=== PATIENT | male | born 1935 | race Caucasian/White ===

== ENCOUNTER 2016-05-30 05:00 | Day surgery (SDC) | payer BC ==
[2016-05-28 13:55] LABS: HEMATOCRIT 38.5 % (40.0-51.0); HEMOGLOBIN 12.8 g/dL (13.6-17.8)
--- NOTE | ~2016-05-30 | OP ---
Record Of Operation [facility] [address] [place]. [address] NAME: KITTY GIBBS : 35 STATUS : [facility]#: [id number] AGE: 80 ADM/REG DATE : 05/30/16 MR#: [id number] REPORT SERV DATE: 05/30/16 DICTATED BY: CHARLY YADAV DATE: 05/30/16 REPORT STATUS : Draft TRANSCRIBED BY: MODL DATE: 05/30/16 DATE OF PROCEDURE: 05/30/2016 PREOPERATIVE DIAGNOSIS: L5 acute compression fracture with intractable back pain. POSTOPERATIVE DIAGNOSIS: L5 acute compression fracture with intractable back pain. PROCEDURE: Navigation-assisted L5 kyphoplasty. JOURNEYMAN LINEMAN: Edwin Ramos. ANESTHESIA: General. BLOOD LOSS: 5 mL. INDICATIONS FOR SURGERY: An 80-year-old gentleman with a recent fall with acute severe back pain. He has tried medications and therapy. Plain x-rays revealed a superior endplate compression fracture which has failed to respond to the medication and bracing. He was given the option of a kyphoplasty just to try to help with pain control and to allow him to be more functional. I did explain to the family this morning that the risks would include but not limited to infection, cement extravasation that could result in cardiac or pulmonary collapse and . Cement can migrate and cause neurologic injury or including paralysis. Hematoma can occur. Perioperative complications such as UTI, PE, pneumonia, IN, CVA were explained as well. Consent form has been signed. PROCEDURE IN DETAIL: The patient was brought to the operative suite. General anesthetic including endotracheal intubation was administered. He was placed prone on a Jose Daniel spine frame. Bony prominences were carefully padded. Thoracolumbar spine was scrubbed with Hibiclens solution. DuraPrep was painted. Sterile drapes were applied. Because of the deformity in the spine and the need to identify correct level of surgery intraoperatively, I felt intraoperative navigation was mandatory. Intraoperative CT scan with the O-arm was obtained. CT information was used to register the navigational system. With navigational assistance, I placed a navigation-assisted needle with the obturator and cannula across the pedicle into the posterior body of L5 left and right sides. The obturator was removed. The cannula was left in place. A guidewire was placed through the cannula, and the cannula was then removed. The kyphoplasty cannula was then inserted over the guidewire and placed into the posterior aspect of the vertebral body through the pedicle. The guidewire was removed, and a biopsy taken and then sent to the lab for routine histology. I then inserted the drill creating a void in the posterior aspect of the vertebral body, left and right sides. A kyphoplasty balloon was inserted, inflated, and deflated creating a large bone void. Record Of Operation [facility] [address] [place]. [address] NAME: KITTY GIBBS : 35 STATUS : [facility] PAT#: [id number] AGE: 80 ADM/REG DATE : 05/30/16 MR#: [id number] REPORT SERV DATE: 05/30/16 DICTATED BY: CHARLY YADAV DATE: 05/30/16 REPORT STATUS : Draft TRANSCRIBED BY: ANDRE DATE: 05/30/16 Under continuous C-arm imaging, poly methyl methacrylate was injected. A total of 4 mL was injected. This nicely filled the vertebral body in the area of the fracture. There was no extravasation found. After the cement had hardened, the cannula was removed. The stab wound was closed with a sterile dressing. The patient was returned to the supine position, awakened, extubated, and taken to recovery room in a satisfactory condition having tolerated the procedure well. Sponge, needle, and instrument counts were correct. No intraoperative complications were noted. ANJALI/ANDRE Charly Yadav D.O. / [id number]
[~2016-05-30 05:00] MED LIST: *DENIES; ANADS PO; ASAB PO; ASABAYER PO; BENICAR HCT1 TA2 PO; BENICAR40 PO; COREG3 PO; GLUCPH PO; LIPITOR10 PO; LIPITOR20 PO; NAP500 PO; OMEPRAZOLE DR PO; ULTRAM50 PO
[2016-05-30 05:58] LABS: CALCIUM, SERUM 8.7 MG/DL (8.5-10.4); CHLORIDE, SERUM 107 MMOL/L (96-112); CO2 (CARBON DIOXIDE) 28 MMOL/L (24-34); CREATININE 0.89 MG/DL (0.70-1.30); GFR AFRICAN AMERICAN 94 ML/MIN (>=60); GFR NON AFRICAN AMERICAN 81 ML/MIN (>=60); POTASSIUM, SERUM 4.3 MMOL/L (3.5-5.3); SODIUM, SERUM 142 MMOL/L (135-148)
[2016-05-30 05:59] LABS: BUN (BLOOD UREA NITROGEN) 25 MG/DL (6-23); GLUCOSE, SERUM 84 MG/DL (60-99)
== END 2016-05-30 09:34 | disposition home or self-care (01) ==
LOC: SDC 05:00
PROVIDERS: Orthopaedic Surgery Orthopaedic Surgery of the Spine
PROC: 0QU03JZ Supplement Lumbar Vertebra with Synthetic Substitute, Percutaneous Approach (ICD-10-PCS; 2016-05-30)
PROC: 0QB03ZX Excision of Lumbar Vertebra, Percutaneous Approach, Diagnostic (ICD-10-PCS; 2016-05-30)
PROC: 0QS03ZZ Reposition Lumbar Vertebra, Percutaneous Approach (ICD-10-PCS; principal; 2016-05-30 05:45)
DX: S32.059A Unspecified fracture of fifth lumbar vertebra, initial encounter for closed fracture (principal); M54.9 Dorsalgia, unspecified; I10 Essential (primary) hypertension; I42.0 Dilated cardiomyopathy; E78.5 Hyperlipidemia, unspecified; E11.9 Type 2 diabetes mellitus without complications; E78.00 Pure hypercholesterolemia, unspecified; F41.9 Anxiety disorder, unspecified; F32.9 Major depressive disorder, single episode, unspecified; G40.909 Epilepsy, unspecified, not intractable, without status epilepticus; G47.33 Obstructive sleep apnea (adult) (pediatric); M19.90 Unspecified osteoarthritis, unspecified site; M81.0 Age-related osteoporosis without current pathological fracture; N42.9 Disorder of prostate, unspecified; Z86.73 Personal history of transient ischemic attack (TIA), and cerebral infarction without residual deficits; Z87.01 Personal history of pneumonia (recurrent); Z88.8 Allergy status to other drugs, medicaments and biological substances; Z98.890 Other specified postprocedural states
CPT/HCPCS: 80048; 82962; 85014; 85018; 88307; 88311; 93005; C1726; J0690; J2250; J2710; J3010; Q9967

== ENCOUNTER 2016-07-10 10:18 | Inpatient (IN) | payer BC ==
--- NOTE | ~2016-07-10 | CN ---
Consultation Report [facility] [address] [place]. [address] NAME: EDSON GIBBS : 35 STATUS : ADM IN PAT#: [id number] AGE: 80 ADM/REG DATE : 07/10/16 MR#: [id number] REPORT SERV DATE: 07/11/16 DICTATED BY: Jo Ann CARDOZO DATE: 07/11/16 REPORT STATUS : Draft TRANSCRIBED BY: MODL DATE: 07/11/16 DATE OF CONSULTATION: 07/10/2016 CHIEF COMPLAINT: Left renal mass. HISTORY OF PRESENT ILLNESS: Mr. Gibbs is an 80-year-old white male, who underwent some recent back surgery. He is admitted with a new L4 compression fracture and pain. It was noted on review of some recent outside imaging that there was some sort of cystic mass associated with his left kidney. 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 There is no strong evidence for metastatic disease. He denies any history, gross hematuria, or voiding dysfunction. His family states that he has become progressively weaker over the last several months. PAST MEDICAL HISTORY: 1. Previous head injury. 2. Seizure disorder. 3. Previous CVA. 4. Hypertension. 5. Hypercholesterolemia. 6. Sleep apnea. 7. Arthritis. 8. Fractured hips. 9. Indeterminate prostate issues. 10.Anxiety and depression. 11.Psoriasis. PAST SURGICAL HISTORY: 1. Tracheostomy with reversal in 1992. 2. Prostate biopsy in 2006, unknown. 3. Mastoidectomy. 4. Left hip fracture with repair in 2012 and 2013. 5. Kyphoplasty, L5, 04/2016. HOME MEDICATIONS: The patient apparently takes blood pressure and heart medicines, but does not know what they are. There is some confusion as to whether he is compliant. ALLERGIES: UNKNOWN ALLERGY TO DILANTIN. REVIEW OF SYSTEMS: Full 12-point review of systems negative, except as noted above. FAMILY HISTORY: Negative for urologic disease. PHYSICAL EXAMINATION: Consultation Report [facility] [address] [place]. [address] NAME: EDSON GIBBS : 35 STATUS : ADM IN PAT#: [id number] AGE: 80 ADM/REG DATE : 07/10/16 MR#: [id number] REPORT SERV DATE: 07/11/16 DICTATED BY: Jo Ann CARDOZO DATE: 07/11/16 REPORT STATUS : Draft TRANSCRIBED BY: MODBethany DATE: 07/11/16 GENERAL: 80-year-old white male. He has provided a little of the history, most of it is gotten from his son. He has continued pulling on cords and the things attached to his bed. Otherwise, he is alert and afebrile. Denies any current pain. HEENT: Normocephalic and atraumatic. CHEST: Clear. HEART: Regular rate and rhythm. ABDOMEN: Flat, nontender, nondistended. No CVA tenderness. : Normal-appearing external genitalia. EXTREMITIES: No peripheral edema noted. PERTINENT LABORATORY: Creatinine is 0.84. White count 10,000. 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 PLAN: I think his back pain and his L4 compression fracture take precedence. I doubt that this mass is causing symptoms and would be unlikely to be metastatic, although that is possible. There is no evidence of adenopathy or local metastases, otherwise. I think that Dr. Osorio should proceed with whatever procedure he has planned for Mr. Gibbs and then at some point, either as an inpatient or an outpatient, will get a four-phase renal CT and proceed as indicated at that time. JPJosie/ANDRE Jo Ann Cardozo M.D. / [id number] CC: Katy Bond Ralph Edward II
--- NOTE | ~2016-07-10 | PREOPHP ---
PreOp History and Physical [facility] [address] [place]. [address] NAME: EDSON GIBBS : 35 STATUS : ADM IN PAT#: [id number] AGE: 80 ADM/REG DATE : 07/10/16 MR#: [id number] REPORT SERV DATE: 07/11/16 DICTATED BY: CHARLY YADAV DATE: 07/11/16 REPORT STATUS : Draft TRANSCRIBED BY: MODL DATE: 07/11/16 CHIEF COMPLAINT: Severe back pain. HISTORY OF PRESENT ILLNESS: This is a rather debilitated 80-year-old male, who recently had a fall and had an L5 kyphoplasty. He was back at home but has had another fall, and he presented with his and son to the office yesterday. He has had a new MRI just in the last few days. The new MRI shows a new L4 compression fracture. More importantly, there is also a finding of a large bi-lobed T2 hyperintense cystic lesion arising from the posterior mid to lower pole of the left kidney that is probable for a renal cell carcinoma. There is a possibility that this is nothing more than a simple cyst. With all the above findings and particularly because it is so difficult for him to try to move back and forth from his home for doctor's appointments due to the intractable pain in his back after the fall, we have admitted him for IV pain control. We will ask Interventional Radiology to proceed with a kyphoplasty of L4 with a biopsy and also I will ask for a urology consult for definitive evaluation and treatment of his left renal mass. The patient does not have any radiculopathy or lower extremity complaints. He has had no evidence of retropulsion and nerve compression per the MRI. He also has had some chronic fractures of L1, 2, 3. He obviously has severe osteoporosis secondary to the above. An incidental finding on the MRI is also a mild degree of degenerative lumbar scoliosis. PAST MEDICAL HISTORY: Included osteoporosis, CVA, TIA, had some memory loss, he has coronary artery disease, and hypertension. He was seen by Dr. Ortiz for his coronary artery disease. PAST SURGICAL HISTORY: He has had a fracture of left and right hip, both have been fixed with ORIF. He had his lumbar kyphoplasty on 05/30/2016. CURRENT MEDICATIONS: The family does not have the list with them, they are unsure. He takes baclofen and hydrocodone. ALLERGIES: HE IS ALLERGIC TO DILANTIN. SOCIAL HISTORY: He is . Retired. Never smoked. Does not use any alcohol. FAMILY HISTORY: One son is alive and overall healthy. He does not have history on his parents. PHYSICAL EXAMINATION: GENERAL: He is in a wheelchair, using a walker when he tries to stand or walk. HEENT: Exam is normocephalic. Pupils are equal and reactive to light. Extraocular muscles are intact. His oral exam is less than ideal, he has several teeth missing, and his oral hygiene is rather poor. NECK: No adenopathy is palpated in the cervical spine. He has limited range of motion of the neck. No carotid bruits are auscultated. LUNGS: Clear to auscultation. HEART: Rate is regular and rhythmic. ABDOMEN: Soft with good bowel sounds. PreOp History and Physical [address] [place]. [address] NAME: EDSON GIBBS : 35 STATUS : ADM IN [facility]#: [id number] AGE: 80 ADM/REG DATE : 07/10/16 MR#: [id number] REPORT SERV DATE: 07/11/16 DICTATED BY: CHARLY YADAV DATE: 07/11/16 REPORT STATUS : Draft TRANSCRIBED BY: ANDRE DATE: 07/11/16 The spine itself has some loss of lordosis. He has some increase in kyphosis of the thoracic spine. He does get pain with percussion along the spinous processes in the mid lumbar spine. Because of his pain and because of his overall age and debilitation, he does not cooperate exceptionally well with motor strength testing, but best I can test he seems to have grossly intact motor strength in both lower extremities. His reflexes both patella and Achilles are absent. There is no dermatomal sensory deficit in the lower extremities below the knees. Toes are downgoing. No ankle clonus is found. Orthopedically, he has previous bilateral hip incisions from prior fractures. He has no significant pain with log rolling of the hips, movement of the knees or ankles. Pulses are weak in all four extremities, but they are present. There are no grossly abnormal skin lesions. ASSESSMENT: 1. Severe osteoporosis. 2. Multiple chronic fractures of the lumbar spine, L1,2, and 3. 3. Previous kyphoplasty to L5, May 2016. 4. L4 new acute compression fracture. 5. Left renal mass, possible renal cell carcinoma versus simple cyst. RECOMMENDATIONS: 1. Interventional Radiology for a kyphoplasty to avoid general anesthesia of L4. 2. Dr. Mackey or his associates to evaluate his left renal mass and decide on the treatment. ANJALI/ANDRE Charly Yadav D.O. / [id number] CC: Anthony Keys
--- NOTE | ~2016-07-10 | CN ---
Consultation Report [facility] [address] [place]. [address] NAME: EDSON GIBBS : 35 STATUS : ADM IN PAT#: [id number] AGE: 80 ADM/REG DATE : 07/10/16 MR#: [id number] REPORT SERV DATE: 07/11/16 DICTATED BY: TRACY JEAN-BAPTISTE DATE: 07/11/16 REPORT STATUS : Draft TRANSCRIBED BY: MODL DATE: 07/11/16 DATE OF CONSULTATION: REASON FOR CONSULTATION: Consulted for hypertension. REQUESTING PHYSICIAN: Frederick Mackey per Dr. Charly Osorio. IDENTIFYING DATA: The patient is a very poor historian from what I can see. PREVIOUS PRIMARY CARE PHYSICIAN: Anthony Keys. SENIOR COMPENSATION CONSULTANT: Mahendra Ortiz M.D. ORHTOPEDIST: In the past, Mile Shah M.D. UROLOGIST: In the past, Quang Garcia M.D. HISTORY OF PRESENT ILLNESS: This is an 80-year-old male, who is admitted by orthopedist, Dr. Charly Osorio with L4 compression fracture and noted a left kidney mass for which Dr. Mackey is now consult. The patient has a history of nonischemic cardiomyopathy with a normal EF, compression fractures, and several back surgeries as well as left hip and right hip surgeries, history of palpitations and a heart murmur, sleep apnea with no use of CPAP, newly diagnosed left kidney mass, hypertension, high cholesterol, seizures in the past after tracheostomy and reversal with feeding tube placement in 1992. The hospitalist group have been consulted to manage his blood pressure. His present medications for blood pressure are unknown. The patient's history was obtained through discussion with the patient, who is a poor historian. Noted in past history he has also had a history of CVA. Most information obtained through review of [employer] and [employer] with no family available for questioning. PAST MEDICAL HISTORY: 1. Head injury in 1992 that required a tracheostomy and a feeding tube, for which he had seizures. 2. Hearing loss. 3. Wears glasses. 4. Anemia. 5. Medication noncompliance. 6. Nonischemic cardiomyopathy with normal EF. 7. Compression fracture, L4. 8. Psoriasis. 9. Anxiety. 10.Depression. 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 12.Hypertension. Consultation Report [facility] [address] [place]. [address] NAME: EDSON GIBBS : 35 STATUS : ADM IN PAT#: [id number] AGE: 80 ADM/REG DATE : 07/10/16 MR#: [id number] REPORT SERV DATE: 07/11/16 DICTATED BY: TRACY JEAN-BAPTISTE DATE: 07/11/16 REPORT STATUS : Draft TRANSCRIBED BY: ANDRE DATE: 07/11/16 13.High cholesterol. 14.Diabetes type 2. 15.Palpitations. 16.Heart murmur. 17.Osteoporosis. 18.Low back pain. 19.CVA. 20.Syncope. 21.Sleep apnea with no use of CPAP. 22.Arthritis. 23.Prostate problems. 24.Newly diagnosed left kidney mass. HOME MEDICATIONS: Previously unknown. The patient cannot remember medications he is on. He states he is on a blood pressure medicine, but does not know what it is called. Old history is noted at one point that he was on Coreg, but his blood pressure presently is 172/82. I will order hydralazine p.r.n. as needed to keep his systolic BP less than 170. Staff is to obtain medication record in the a.m. ALLERGIES: NOTED DILANTIN. SOCIAL HISTORY: The patient states he is , has two grown sons. States he lives in a single-level home. Use of cane walker and shower chair. No tobacco, alcohol, or illicit drug use. Sedentary lifestyle. FAMILY HISTORY: Obtained from old medical records, it is positive for CVA, CAD, hypertension. Mother had a brain tumor and hypertension. The patient states he had two brothers and two sisters, who are . SURGICAL HISTORY: 1. Left ear mastoidectomy. 2. Left hip, September 2012. 3. Right hip, 2013. 4. Tracheostomy with feeding tube and reversal in 1992. 5. L5 kyphoplasty in April of 2016 status post L5 compression fracture. 6. Prostate biopsy in 2006. REVIEW OF SYSTEMS: Negative other than what is in HPI. The patient states he has no shortness of breath. He has no nausea and vomiting. No abdominal pain. No chest pain. No fever. He does show confusion, but no agitation. PHYSICAL EXAMINATION: VITAL SIGNS: From today, blood pressure previously 172/82, now blood pressure lower at 119/61, respiratory rate 19, heart rate 80, temperature 97.8, O2 saturation 98% on room air. Consultation Report [address] [place]. [address] NAME: EDSON GIBBS : 35 STATUS : ADM IN PAT#: [id number] AGE: 80 ADM/REG DATE : 07/10/16 MR#: [id number] REPORT SERV DATE: 07/11/16 DICTATED BY: TRACY JEAN-BAPTISTE DATE: 07/11/16 REPORT STATUS : Draft TRANSCRIBED BY: MODL DATE: 07/11/16 GENERAL: This is an 80-year-old male, resting in bed, in no acute distress. NEURO: His head is atraumatic, normocephalic. He is alert. He is oriented x1 at present. He states he is unable to remember aspects of his history. He is pleasant. NECK: Supple. Trachea is midline. No JVD noted. No obvious thyromegaly or lymphadenopathy. EENT: His sclerae are nonicteric. Pupils are equal and reactive to light. His nares are patent. Mucous membranes moist. Tongue midline without deviation. His soft palate rises equally with phonation. CHEST: No pain with palpation. LUNGS: Clear to auscultation bilaterally. The patient has normal respiratory effort. No increased work of breathing with conversation. CARDIOVASCULAR: S1 and S2. Positive for murmur. No rubs or gallops. He is on telemetry, rate of 96. It displays a sinus rhythm with an occasional PVC. ABDOMEN: Soft, nontender. Bowel sounds are active. No palpable organomegaly. Last bowel movement noted 07/08/2016. EXTREMITIES: No edema. Normal pulses. No calf tenderness. He will have TEDs and SCDs for DVT prophylaxis. SKIN: Warm and dry with no unusual rashes or lesions. Normal color and turgor for age. PSYCH: The patient is pleasant. He is cooperative, very forgetful, asked what time a day his physician would be in because he does not even realize it is 10 o'clock at night. GENITOURINARY: The patient is voiding per urinal with noted yellow urine. LABORATORY DATA: Sodium 142, potassium 4.1, chloride 105, BUN 27, creatinine 0.84, GFR 96, glucose 110, calcium 9.3. White blood cell 10.0, hemoglobin 12.4, hematocrit 38.1, platelets 287. The patient had a chest x-ray on 07/10/2016 that showed nonfocal airspace disease. The patient had an ECG on 07/10/2016 that showed normal sinus rhythm with a rate at 69 with left ventricular hypertrophy and a nonspecific T-wave abnormality and prolonged QT. The patient had a CT of the abdomen on 07/10/2016 that showed a renal mass 7.6 x 7.2 x 6.7 cm and the findings were concerning for cystic renal neoplasm for which Dr. Mackey has been consulted. ASSESSMENT AND PLAN: 1. Hypertension and looking through the old records on [employer], the patient does have a history of nonischemic cardiomyopathy with a normal EF. He does have a heart murmur. He does have a history of hypertension and he is on cardiac medications at home. He just does not remember what. Previous medications noted, I have seen Coreg in the past medical records. Staff will need to obtain medication record this morning, it is appropriate. The patient's blood pressure was 172/82 and I ordered hydralazine p.r.n. systolic blood pressure greater than 170, and the patient is on telemetry. 2. Diabetes type 2. The patient does not know that he is diabetic, but there is previous notation that he has been on metformin per history. He is not on metformin presently. We will place him on a sliding scale insulin level 1 with a hypoglycemic protocol. We will do fingerstick blood sugars a.c. and h.s. Check his hemoglobin A1c in the morning Consultation Report [address] [address] NAME: EDSON GIBBS : 35 STATUS : ADM IN [facility]#: [id number] AGE: 80 ADM/REG DATE : 07/10/16 MR#: [id number] REPORT SERV DATE: 07/11/16 DICTATED BY: TRACY JEAN-BAPTISTE DATE: 07/11/16 REPORT STATUS : Draft TRANSCRIBED BY: MODL DATE: 07/11/16 and he will be on a cardiac ADA diet when he is off n.p.o. status. 3. Obstructive sleep apnea. Per history, the patient states he is not on oxygen at home. We will use O2 as needed to keep his saturation 92% or greater. We will have continuous O2 saturation monitoring since he has a history of sleep apnea with no use of CPAP. 4. Hypercholesterolemia. Previous history is noted the patient on Lipitor. Med list to be obtained to actually verify that and if so, his Lipitor would be continued. Finally, the patient is a poor historian. He cannot remember significant issues of his health history. He does not realize even the time of day it is at present time. Labs to be obtained are hemoglobin A1c, BMP, magnesium, phosphorus, CBC, BNP, UA with micro. The hospitalist group would like to thank you for this consultation. Please let us know if we could be of further assistance. YRSI Tracy Jean-Baptiste NP / [id number] CC: Katy Bond
--- NOTE | ~2016-07-10 | DS ---
Discharge Summary [facility] [address] [place]. [address] NAME: EDSON GIBBS : 35 STATUS : DIS IN PAT#: [id number] AGE: 80 ADM/REG DATE : 07/10/16 MR#: [id number] REPORT SERV DATE: 07/28/16 DICTATED BY: CHARLY YADAV DATE: 07/27/16 REPORT STATUS : Draft TRANSCRIBED BY: MODBethany DATE: 07/27/16 Data Collection from hospitalization DISCHARGE DIAGNOSES: 1. L4 compression fracture. 2. Renal mass. 3. Hypertension. 4. Osteoporosis. 5. History of cerebrovascular accident and transient ischemic attack. 6. Coronary artery disease. 7. Obstructive sleep apnea. 8. Type 2 diabetes. 9. Anemia. 10.Medication noncompliance. 11.Nonischemic cardiomyopathy. 12.Psoriasis. 13.Anxiety. 14.Depression. CONSULTATIONS: Tracy Self NP and Dr. Jo Ann Mackey. PROCEDURES PERFORMED: 1. CT scan of the abdomen without contrast, 07/10/2016. 2. Bilateral L4 kyphoplasty with biopsy of the L4 vertebral body, 07/11/2016. 3. CT scan of the abdomen and pelvis with and without contrast, 07/12/2016. PATHOLOGY: Bone, lumbar vertebra (L4) core biopsy and aspiration-normocellular marrow with focal medullary fibrosis and hemorrhage. No tumor or granuloma seen. MEDICATIONS: Myriam cream apply to the buttocks and posterior thighs topically as directed, hydrochlorothiazide 25 mg at 9 a.m., Benicar 20 mg daily, MiraLAX powder one packet daily, Effexor XR 37.5 mg daily, DuoNeb 3 mL via inhaler every four hours while awake, Seroquel 12.5 mg at bedtime as needed. CONDITION AT DISCHARGE: Stable. DISPOSITION: The patient was discharged to [facility] [place] on a pureed diet with activities as instructed. HOSPITAL COURSE: This is an 80-year-old man, who recently had a fall and had undergone an L5 kyphoplasty. He was back at home and had another fall. He presented with his and son to the office on the day prior to this admission. A new MRI within the last few days showed new L4 compression fracture. 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 There was a possibility that this is nothing more than a simple cyst with these findings and because it was so difficult for him to try and move back and forth from his home for doctor's appointments due to the intractable pain in his back after the fall, he was going to be admitted for IV pain control. We would ask Discharge Summary [place] [id number] [facility] [place] [id number] NAME: EDSON GIBBS : 35 STATUS : DIS IN PAT#: [id number] AGE: 80 ADM/REG DATE : 07/10/16 MR#: [id number] REPORT SERV DATE: 07/28/16 DICTATED BY: CHARLY YADAV DATE: 07/27/16 REPORT STATUS : Draft TRANSCRIBED BY: ANDRE DATE: 07/27/16 Interventional Radiology to proceed with kyphoplasty of L4 with a biopsy. It was felt that he would need a Urology evaluation and treatment of the left renal mass. The patient does not have radiculopathy or lower extremity complaints. He had no evidence of retropulsion or nerve compression on the MRI. He also had some chronic fractures of L1, L2, and L3. He obviously has severe osteoporosis and incidental finding on the MRI is a mild degree of degenerative lumbar scoliosis. He was admitted to the hospital at this time for further evaluation and treatment. Upon admission, a CT scan of the abdomen without contrast was performed. The patient was seen by Dr. Jo Ann Mackey regarding left renal mass. 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 There is no strong evidence for metastatic disease. He denies any history or gross hematuria or voiding dysfunction. He said that he had become progressively weaker over the past several months. White count was 10,000. It was felt that his back pain and L4 compression fracture take precedence. He was doubtful that the mass was causing symptoms and would be unlikely to be metastatic, although that was possible. There was no evidence of adenopathy or local metastases otherwise. He felt that we should proceed with whatever procedure was planned and then at some point either as an inpatient or outpatient, a four-phase renal CT would be performed and we would proceed as indicated at that time. He was also seen by Tracy Self regarding hypertension. His medications at the present time for his blood pressure are unknown. White blood cell count was 10. The patient does have a history of nonischemic cardiomyopathy with a normal ejection fraction. He is on cardiac medications at home, he just did not remember what they were. Coreg has been seen in past medical records. It was felt that we would need to obtain medication records. Blood pressure was 172/82. Hydralazine was ordered as needed for systolic blood pressure greater than 170. The patient was on telemetry. The patient has type 2 diabetes. He did not know that he was a diabetic, but there was a previous notation that he had been on metformin. He is not on metformin presently. He was going to be placed on level 1 sliding scale insulin with hypoglycemic protocol. Hemoglobin A1c was going to be checked. He was going to be placed on a cardiac/diabetic diet once he was off n.p.o. status. The patient said he is not on oxygen at home. He does have obstructive sleep apnea. We would use O2 as needed to keep his saturations 92% or greater. We would have continuous O2 saturation monitoring since he has a history of sleep apnea with no use of CPAP. The patient had previously been on Lipitor for hypercholesterolemia. We would verify this on his medication list. The following day, he underwent bilateral L4 kyphoplasty with biopsy of the L4 vertebral body. Hydralazine was continued as needed. Sliding scale insulin was continued. His appetite was poor. On 07/12/2016, Speech/Language Pathology evaluated the patient. There were no overt signs or symptoms of aspiration. He had no complications. He was eating well. He denied pain. Milk of magnesia was given. A Dulcolax suppository was given. A CT scan of the abdomen and pelvis with and without contrast had been performed. He was evaluated by Occupational and Physical Therapy. On 07/14/2016, the patient said his neck pain was 3/10. He had only been eating small portions of his meals. The patient was encouraged to drink Ensure. Seroquel was being provided for agitation. The next day, he refused to eat. He said he had nothing to look forward to. He was agreeable to taking an antidepressant and DNR code status. On 07/16/2016, he was up sitting in a chair. He did eat a little breakfast. His spirits Discharge Summary [facility] [address] [place]. [address] NAME: EDSON GIBBS : 35 STATUS : DIS IN PAT#: [id number] AGE: 80 ADM/REG DATE : 07/10/16 MR#: [id number] REPORT SERV DATE: 07/28/16 DICTATED BY: CHARLY YADAV DATE: 07/27/16 REPORT STATUS : Draft TRANSCRIBED BY: MODL DATE: 07/27/16 seemed better. Effexor had been given. He had no complaints. He was going to follow up with Dr. Mackey in about four to six months. Repeat imaging would depend on his overall condition. Discharge planning was performed. On 07/18/2016, discharge instructions were given. Due to his improved and stable condition, he was discharged to [facility] [place] with the above-stated instructions. Information collected by: Nicol Bazan I submit the above information as my discharge summary. TG/MODL Charly Yadav D.O. / [id number] CC: Katy Bond [facility] HospitalDarren Mackey M.D.
[2016-07-10 11:41] LABS: BASOPHILS 0.4 %; BASOPHILS ABSOLUTE 0.04 10/3/uL (0.0-0.16); HEMATOCRIT 38.1 % (40.0-51.0); HEMOGLOBIN 12.4 g/dL (13.6-17.8); IMMATURE GRANULOCYTES 0.4 %; IMMATURE GRANULOCYTES ABSOLUTE 0.04 10/3/uL (0.0-0.11); LYMPHOCYTES 20.3 %; LYMPHOCYTES ABSOLUTE 2.02 10/3/uL (0.67-4.30); MEAN CORPUS HGB CONC 32.5 g/dL (32.0-36.0); MEAN CORPUSCULAR HEMOGLOB 29.2 pg (26.0-34.0); MEAN CORPUSCULAR VOLUME 89.6 fL (80-100); MEAN PLATELET VOLUME 10.2 fL (9.2-13.0); MONOCYTES 10.5 %; MONOCYTES ABSOLUTE 1.05 10/3/uL (0.21-1.20); NEUTROPHILS 65.4 %; NEUTROPHILS ABSOLUTE 6.52 10/3/uL (2.02-8.40); PLATELET COUNT 287 10/3/uL (150-400); RED CELL COUNT 4.25 10/6/uL (4.7-6.1)
[2016-07-10 11:44] LABS: MANUAL DIFF NO %
[2016-07-10 11:56] LABS: A/G RATIO 0.8 (0.7-1.9); ALBUMIN 3.3 G/DL (3.5-5.0); ALKALINE PHOSPHATASE 122 U/L (45-117); BUN (BLOOD UREA NITROGEN) 27 MG/DL (6-23); CALCIUM, SERUM 9.3 MG/DL (8.5-10.4); CHLORIDE, SERUM 105 MMOL/L (96-112); CREATININE 0.84 MG/DL (0.70-1.30); GFR AFRICAN AMERICAN 96 ML/MIN (>=60); GFR NON AFRICAN AMERICAN 83 ML/MIN (>=60); POTASSIUM, SERUM 4.1 MMOL/L (3.5-5.3); SGOT(AST) 31 U/L (5-40); SGPT(ALT) 22 U/L (5-65); SODIUM, SERUM 142 MMOL/L (135-148); TOTAL BILIRUBIN 0.6 MG/DL (0-1.2); TOTAL PROTEIN 7.3 G/DL (6.0-8.5)
[2016-07-10 11:57] LABS: CO2 (CARBON DIOXIDE) 34 MMOL/L (24-34); GLUCOSE, SERUM 110 MG/DL (60-99)
[2016-07-11 03:29] LABS: ASCORBIC ACID (UR NOT ORDER) NEG (NEG); BILIRUBIN, URINE NEGATIVE (NEG); KETONE, URINE NEGATIVE (NEG); LEUKOCYTE ESTERASE(NOT OR NEG (NEG); WBC (NOT ORDERED) (RFLEX) 1 (0-5)
[2016-07-11 04:54] LABS: BASOPHILS ABSOLUTE 0.09 10/3/uL (0.0-0.16); EOSINOPHILS 3.4 %; EOSINOPHILS ABSOLUTE 0.29 10/3/uL (0.0-0.53); HEMATOCRIT 34.4 % (40.0-51.0); HEMOGLOBIN 11.2 g/dL (13.6-17.8); IMMATURE GRANULOCYTES 0.2 %; IMMATURE GRANULOCYTES ABSOLUTE 0.02 10/3/uL (0.0-0.11); LYMPHOCYTES 22.2 %; LYMPHOCYTES ABSOLUTE 1.91 10/3/uL (0.67-4.30); MEAN CORPUS HGB CONC 32.6 g/dL (32.0-36.0); MEAN CORPUSCULAR VOLUME 89.1 fL (80-100); MEAN PLATELET VOLUME 10.6 fL (9.2-13.0); MONOCYTES 8.6 %; MONOCYTES ABSOLUTE 0.74 10/3/uL (0.21-1.20); NEUTROPHILS 64.6 %; NEUTROPHILS ABSOLUTE 5.57 10/3/uL (2.02-8.40); PLATELET COUNT 267 10/3/uL (150-400); RED CELL COUNT 3.86 10/6/uL (4.7-6.1); WHITE BLOOD CELLS 8.6 10/3/uL (4.5-10.5)
[2016-07-11 05:01] LABS: CALCIUM, SERUM 8.4 MG/DL (8.5-10.4); CHLORIDE, SERUM 106 MMOL/L (96-112); CREATININE 0.68 MG/DL (0.70-1.30); GFR AFRICAN AMERICAN 105 ML/MIN (>=60); GFR NON AFRICAN AMERICAN 90 ML/MIN (>=60); GLUCOSE, SERUM 92 MG/DL (60-99); MANUAL DIFF NO %; PHOSPHORUS, SERUM 3.1 MG/DL (2.5-4.5); POTASSIUM, SERUM 4.2 MMOL/L (3.5-5.3); SODIUM, SERUM 141 MMOL/L (135-148)
[2016-07-11 05:02] LABS: BUN (BLOOD UREA NITROGEN) 22 MG/DL (6-23); CO2 (CARBON DIOXIDE) 29 MMOL/L (24-34)
[2016-07-11 05:36] LABS: B NATRIURETIC PEPTIDE (BNP) 174.6 PG/ML (< 100.0)
[2016-07-11 08:43] LABS: GLYCOHEMOGLOBIN (HbA1c) 5.6 % (4.7-6.1)
[2016-07-12 05:32] LABS: BASOPHILS 0.2 %; BASOPHILS ABSOLUTE 0.03 10/3/uL (0.0-0.16); EOSINOPHILS ABSOLUTE 0.14 10/3/uL (0.0-0.53); HEMOGLOBIN 12.5 g/dL (13.6-17.8); IMMATURE GRANULOCYTES 0.2 %; IMMATURE GRANULOCYTES ABSOLUTE 0.03 10/3/uL (0.0-0.11); LYMPHOCYTES 7.3 %; LYMPHOCYTES ABSOLUTE 1.05 10/3/uL (0.67-4.30); MEAN CORPUS HGB CONC 32.7 g/dL (32.0-36.0); MEAN CORPUSCULAR HEMOGLOB 29.6 pg (26.0-34.0); MEAN CORPUSCULAR VOLUME 90.5 fL (80-100); MEAN PLATELET VOLUME 10.5 fL (9.2-13.0); MONOCYTES 5.4 %; MONOCYTES ABSOLUTE 0.77 10/3/uL (0.21-1.20); NEUTROPHILS 85.9 %; NEUTROPHILS ABSOLUTE 12.32 10/3/uL (2.02-8.40); PLATELET COUNT 264 10/3/uL (150-400); RBC DISTRIBUTION WIDTH 14.3 % (12.0-16.0); RED CELL COUNT 4.22 10/6/uL (4.7-6.1)
[2016-07-12 05:37] LABS: HEMATOCRIT 38.2 % (40.0-51.0); MANUAL DIFF NO %; WHITE BLOOD CELLS 14.3 10/3/uL (4.5-10.5)
[2016-07-12 05:53] LABS: CALCIUM, SERUM 8.3 MG/DL (8.5-10.4); CHLORIDE, SERUM 106 MMOL/L (96-112); CO2 (CARBON DIOXIDE) 29 MMOL/L (24-34); CREATININE 0.87 MG/DL (0.70-1.30); GFR AFRICAN AMERICAN 94 ML/MIN (>=60); GFR NON AFRICAN AMERICAN 82 ML/MIN (>=60); GLUCOSE, SERUM 97 MG/DL (60-99); SODIUM, SERUM 142 MMOL/L (135-148)
[2016-07-12 05:54] LABS: BUN (BLOOD UREA NITROGEN) 11 MG/DL (6-23)
[2016-07-13 07:08] LABS: BASOPHILS 0.3 %; BASOPHILS ABSOLUTE 0.04 10/3/uL (0.0-0.16); EOSINOPHILS 2.8 %; EOSINOPHILS ABSOLUTE 0.37 10/3/uL (0.0-0.53); HEMATOCRIT 39.6 % (40.0-51.0); HEMOGLOBIN 12.8 g/dL (13.6-17.8); IMMATURE GRANULOCYTES 0.3 %; IMMATURE GRANULOCYTES ABSOLUTE 0.04 10/3/uL (0.0-0.11); LYMPHOCYTES 12.8 %; LYMPHOCYTES ABSOLUTE 1.67 10/3/uL (0.67-4.30); MEAN CORPUS HGB CONC 32.3 g/dL (32.0-36.0); MEAN CORPUSCULAR HEMOGLOB 29.5 pg (26.0-34.0); MEAN CORPUSCULAR VOLUME 91.2 fL (80-100); MEAN PLATELET VOLUME 10.1 fL (9.2-13.0); MONOCYTES 5.5 %; MONOCYTES ABSOLUTE 0.72 10/3/uL (0.21-1.20); NEUTROPHILS 78.3 %; NEUTROPHILS ABSOLUTE 10.23 10/3/uL (2.02-8.40); PLATELET COUNT 246 10/3/uL (150-400); RBC DISTRIBUTION WIDTH 13.9 % (12.0-16.0); RED CELL COUNT 4.34 10/6/uL (4.7-6.1); WHITE BLOOD CELLS 13.1 10/3/uL (4.5-10.5)
[2016-07-13 07:10] LABS: MANUAL DIFF NO %
[2016-07-13 07:26] LABS: BUN (BLOOD UREA NITROGEN) 10 MG/DL (6-23); CALCIUM, SERUM 8.7 MG/DL (8.5-10.4); CHLORIDE, SERUM 109 MMOL/L (96-112); CREATININE 0.68 MG/DL (0.70-1.30); GFR AFRICAN AMERICAN 105 ML/MIN (>=60); GFR NON AFRICAN AMERICAN 90 ML/MIN (>=60); GLUCOSE, SERUM 97 MG/DL (60-99); SODIUM, SERUM 141 MMOL/L (135-148)
[2016-07-13 07:27] LABS: ALKALINE PHOSPHATASE 106 U/L (45-117); CO2 (CARBON DIOXIDE) 24 MMOL/L (24-34)
[2016-07-14 05:24] LABS: BASOPHILS 0.3 %; BASOPHILS ABSOLUTE 0.04 10/3/uL (0.0-0.16); EOSINOPHILS 3.5 %; EOSINOPHILS ABSOLUTE 0.46 10/3/uL (0.0-0.53); HEMATOCRIT 36.2 % (40.0-51.0); HEMOGLOBIN 11.8 g/dL (13.6-17.8); IMMATURE GRANULOCYTES 0.2 %; IMMATURE GRANULOCYTES ABSOLUTE 0.03 10/3/uL (0.0-0.11); LYMPHOCYTES 12.8 %; LYMPHOCYTES ABSOLUTE 1.71 10/3/uL (0.67-4.30); MEAN CORPUS HGB CONC 32.6 g/dL (32.0-36.0); MEAN CORPUSCULAR HEMOGLOB 28.8 pg (26.0-34.0); MEAN PLATELET VOLUME 10.1 fL (9.2-13.0); MONOCYTES 6.8 %; MONOCYTES ABSOLUTE 0.91 10/3/uL (0.21-1.20); NEUTROPHILS 76.4 %; NEUTROPHILS ABSOLUTE 10.17 10/3/uL (2.02-8.40); PLATELET COUNT 256 10/3/uL (150-400); RBC DISTRIBUTION WIDTH 14.2 % (12.0-16.0); WHITE BLOOD CELLS 13.3 10/3/uL (4.5-10.5)
[2016-07-14 05:25] LABS: MANUAL DIFF NO %; MEAN CORPUSCULAR VOLUME 88.3 fL (80-100)
[2016-07-14 05:39] LABS: BUN (BLOOD UREA NITROGEN) 7 MG/DL (6-23); CALCIUM, SERUM 8.6 MG/DL (8.5-10.4); CHLORIDE, SERUM 108 MMOL/L (96-112); CO2 (CARBON DIOXIDE) 27 MMOL/L (24-34); CREATININE 0.67 MG/DL (0.70-1.30); GFR AFRICAN AMERICAN 105 ML/MIN (>=60); GFR NON AFRICAN AMERICAN 91 ML/MIN (>=60); GLUCOSE, SERUM 91 MG/DL (60-99); POTASSIUM, SERUM 4.4 MMOL/L (3.5-5.3); SODIUM, SERUM 141 MMOL/L (135-148)
[2016-07-15 06:20] LABS: BASOPHILS 0.3 %; BASOPHILS ABSOLUTE 0.03 10/3/uL (0.0-0.16); EOSINOPHILS 1.8 %; HEMATOCRIT 37.1 % (40.0-51.0); HEMOGLOBIN 12.5 g/dL (13.6-17.8); IMMATURE GRANULOCYTES 0.4 %; IMMATURE GRANULOCYTES ABSOLUTE 0.04 10/3/uL (0.0-0.11); LYMPHOCYTES 15.8 %; LYMPHOCYTES ABSOLUTE 1.74 10/3/uL (0.67-4.30); MANUAL DIFF NO %; MEAN CORPUS HGB CONC 33.7 g/dL (32.0-36.0); MEAN CORPUSCULAR HEMOGLOB 29.7 pg (26.0-34.0); MEAN CORPUSCULAR VOLUME 88.1 fL (80-100); MONOCYTES 5.8 %; MONOCYTES ABSOLUTE 0.64 10/3/uL (0.21-1.20); NEUTROPHILS 75.9 %; NEUTROPHILS ABSOLUTE 8.39 10/3/uL (2.02-8.40); PLATELET COUNT 291 10/3/uL (150-400); RBC DISTRIBUTION WIDTH 14.6 % (12.0-16.0); RED CELL COUNT 4.21 10/6/uL (4.7-6.1)
[2016-07-15 06:36] LABS: ALBUMIN 2.8 G/DL (3.5-5.0); BUN (BLOOD UREA NITROGEN) 9 MG/DL (6-23); CALCIUM, SERUM 8.9 MG/DL (8.5-10.4); CHLORIDE, SERUM 109 MMOL/L (96-112); CO2 (CARBON DIOXIDE) 26 MMOL/L (24-34); CREATININE 0.64 MG/DL (0.70-1.30); GFR AFRICAN AMERICAN 107 ML/MIN (>=60); GFR NON AFRICAN AMERICAN 92 ML/MIN (>=60); GLUCOSE, SERUM 109 MG/DL (60-99); PHOSPHORUS, SERUM 2.6 MG/DL (2.5-4.5); POTASSIUM, SERUM 3.9 MMOL/L (3.5-5.3); SODIUM, SERUM 143 MMOL/L (135-148)
== END 2016-07-18 18:12 | DRG 477 ==
LOC: CDU2 10:18 → 4EA 07-12 11:41
PROVIDERS: Nurse Practitioner Family; Orthopaedic Surgery Orthopaedic Surgery of the Spine
PROC: 0QS03ZZ Reposition Lumbar Vertebra, Percutaneous Approach (ICD-10-PCS; principal; 2016-07-10)
PROC: 0QB00ZX Excision of Lumbar Vertebra, Open Approach, Diagnostic (ICD-10-PCS; 2016-07-10)
PROC: 0QU03JZ Supplement Lumbar Vertebra with Synthetic Substitute, Percutaneous Approach (ICD-10-PCS; 2016-07-10)
DX: S32.049A Unspecified fracture of fourth lumbar vertebra, initial encounter for closed fracture (principal); G93.40 Encephalopathy, unspecified; J96.11 Chronic respiratory failure with hypoxia; E11.9 Type 2 diabetes mellitus without complications; M80.08XA Age-related osteoporosis with current pathological fracture, vertebra(e), initial encounter for fracture; I10 Essential (primary) hypertension; G47.33 Obstructive sleep apnea (adult) (pediatric); E78.00 Pure hypercholesterolemia, unspecified; N28.89 Other specified disorders of kidney and ureter; I25.10 Atherosclerotic heart disease of native coronary artery without angina pectoris; Z86.73 Personal history of transient ischemic attack (TIA), and cerebral infarction without residual deficits
CPT/HCPCS: 22514; 71010; 74150; 74178; 80048; 80053; 80069; 81001; 82962; 83036; 83735; 83880; 84075; 84100; 85025; 88307; 88311; 88333; 92610-GN; 93005; 94640; 97110-GO; 97110-GP; 97116-GP; 97162-GP; 97166-GO; 97535-GO; A9270-GY; J0330; J0360; J2370; J2405; J3010; Q9967